=== PATIENT | female | born 2000 | race African-American/Black ===

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

== ENCOUNTER 2018-03-21 12:32 | Emergency (ER) | payer MEDICAID ==
[~2018-03-21] VITALS: Ht 172.7 cm; Wt 59.0 kg
[~2018-03-21 12:32] MED LIST changes: +ALBUTEROL SULF8.5 GM INH; +IBUPROFEN600 MG ORAL
[2018-03-21 12:45] VITALS: BP 109/66
--- NOTE | 2018-03-21 12:52 | Emergency Room Report ---
History of Present Illness General Chief Complaint: Flu Like Symptoms Source: Patient Present Illness HPI 17-year-old female presents to the emergency department complaining of progressive 8 out of 10 in severity sore throat with bodyaches, fatigue and hot flashes. Patient states that she had a hot flash however her sister told her that she did not feel warm to the touch. Patient has not taken any over-the- counter medications for her symptoms. Denies recent travel reports boyfriend has similar symptoms in addition to ear ache. She is up-to-date with all her vaccinations. Denies cough other than phlem in the morning, neck stiffness/pain , headache, photophobia. denies fevers. Allergies: Coded Allergies: No Known Allergies (Unverified , 06/20/17) Patient History Past Medical History: see triage record Past Surgical History: none Pertinent Family History: none Last Menstrual Period: 03/19/18 Now: No Immunizations: UTD Reviewed Nursing Documentation: PMH: Agreed; PSxH: Agreed Nursing Documentation-PMH Past Medical History: No History, Except For Hx Asthma: Yes Review of Systems All Other Systems: negative except mentioned in HPI Physical Exam Vital Signs Date Time Temp Pulse Resp B/P (MAP) Pulse Ox O2 Delivery O2 Flow Rate FiO2 03/21/18 12:36 98.3 91 18 109/66 98 Room Air 98.2 Sp02 EP Interpretation: reviewed, normal General Appearance: no apparent distress, alert, GCS 15, non-toxic Head: normocephalic, atraumatic ENT: hearing grossly normal, normal voice, TMs + canals normal, uvula midline, moist mucus membranes, nasal congestion, other - no tonsillar swelling or exudates, some cobble stone /salmon patches noted on posterior pharynx. Neck: full range of motion, no meningismus Respiratory: chest non-tender, lungs clear, normal breath sounds, speaking full sentences Cardiovascular #1: regular rate, rhythm Musculoskeletal: back normal, gait/station normal, normal range of motion, non- tender Neurologic: alert, oriented x3, responsive, motor strength/tone normal, sensory intact, normal gait, speech normal, grossly normal Psychiatric: judgement/insight normal Skin: normal color, no rash, warm/dry, well hydrated Lymphatic: no adenopathy Medical Decision Making PA Attestation Dr. Kerr is my supervising Physician whom patient management has been discussed with. Diagnostic Impression: Primary Impression: Acute viral pharyngitis Additional Impression: Post-nasal drainage ER Course 17-year-old female presents to the emergency department complaining of progressive 8 out of 10 in severity sore throat with bodyaches, fatigue and hot flashes. Patient states that she had a hot flash however her sister told her that she did not feel warm to the touch. Patient has not taken any over-the- counter medications for her symptoms. Denies recent travel reports boyfriend has similar symptoms in addition to ear ache. She is up-to-date with all her vaccinations. Denies cough other than phlem in the morning, neck stiffness/pain , headache, photophobia. denies fevers. Ddx considered but are not limited to: pharyngitis, strep, HAND PACKER, ludwigs angina, URI Vital signs: are WNL, pt. is afebrile H&PE are most consistent with: pharyngitis presumed viral in etiology does not meet Centor criteria, no tonsillar exudates. ORDERS: None required at this time as the diagnosis is clinical ED INTERVENTIONS: none required at this time. DISCHARGE: At this time pt. is stable for d/c to home. Will provide printed patient care instructions, and any necessary prescriptions. Care plan and follow up instructions have been discussed with the patient prior to discharge. Last Vital Signs Date Time Temp Pulse Resp B/P (MAP) Pulse Ox O2 Delivery O2 Flow Rate FiO2 03/21/18 12:45 91 18 Room Air 03/21/18 12:45 98.2 109/66 98 98.2 Disposition: HOME, SELF-CARE Condition: Stable Patient Instructions: Pharyngitis Additional Instructions: Take medications as directed. Follow up with a Primary Care Provider in 3-5 days, even if your symptoms have resolved. --Please review list of primary care clinics, if you do not already have a primary care provider Return sooner to ED if new symptoms occur, or current symptoms become worse. - Please note that this Emergency Department Report was dictated using [employer] installer helper technology software, occasionally this can lead to erroneous entry secondary to interpretation by the dictation equipment. Elmira Cedillo Mar 21, 2018 12:52
[2018-03-21] MEDS ORDERED: LIDOCAINE VISC100 ML ORAL (12:54)
[2018-03-21] MEDS ORDERED: ZYRTEC-D TABLE1 EACH ORAL (12:54)
[2018-03-21] MEDS ORDERED: NAPROXEN500 M2 ORAL (12:54)
[2018-03-21 13:19] VITALS: BP 109/66
== END 2018-03-21 13:22 | disposition home or self-care (01) ==
LOC: EMR 12:48
DX: J02.8 Acute pharyngitis due to other specified organisms (principal); B97.89 Other viral agents as the cause of diseases classified elsewhere; R09.82 Postnasal drip; J45.909 Unspecified asthma, uncomplicated
CPT/HCPCS: 99282